=== PATIENT | female | born 1960 | race Hispanic/Latino ===

== ENCOUNTER 2018-11-22 13:32 | Emergency (ER) | payer MEDICARE ==
[2018-11-22 15:10] VITALS: BP 122/77
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
[2018-11-22] MEDS ORDERED: ZOFRAN ODT PO ONE (17:26)
[2018-11-22] MEDS ORDERED: DECADRON IM STA (17:26)
[2018-11-22] MEDS ORDERED: NORCO 5/325 PO ONE (17:26)
[2018-11-22] MEDS ORDERED: BENADRYL IM ONE (17:26)
[2018-11-22] MEDS ORDERED: ULTRAM PO ONE (17:41)
--- NOTE | 2018-11-24 14:25 | XRay Report ---
FINAL REPORT EXAM: XR SPINE CERVICAL 2-3V HISTORY: neck hip TECHNIQUE: AP, lateral , swimmer's, and odontoid views of the cervical spine PRIORS: None. FINDINGS: The vertebral body heights and disc spaces are well maintained. The alignment is normal. No prevert ebral soft tissue swelling is seen. The odontoid is intact. IMPRESSION: Normal cervical spine.
--- NOTE | 2018-11-24 15:54 | XRay Report ---
FINAL REPORT EXAM: XR HIP 2-3V LT HISTORY: left hip pain TECHNIQUE: AP view of the pelvis and single coned-down view of the left hip. PRIORS: None. FINDINGS: No evidence for acute fracture or dislocation is seen. Joint spaces are maintained. The soft tissues are unremarkable. Bony mineralization is normal. IMPRESSION: No acute soft tissue or bony abnormality noted in the left hip.
--- NOTE | 2018-11-24 15:57 | XRay Report ---
FINAL REPORT EXAM: XR SPINE LUMBOSACRAL 2-3V HISTORY: low back pain TECHNIQUE: AP, lateral and coned-down views of the lumbar spine PRIORS: None. FINDINGS: There is superior endplate compression of L2 and L3. There is slight kyphosis at the L1-L2 level. The other vertebral body heights and disc spaces are well maintained. The alignment is normal. No ev idence for spondylolysis or spondylolisthesis is seen. Pedicles are intact bilaterally at all levels. The paraspinal soft tissues are unremarkable. surgical clips in the right upper quadrant suggests pr ior cholecystectomy. IMPRESSION: Superior endplate compressions of L1 and L2.
== END 2018-11-22 19:10 | disposition home or self-care (01) ==
LOC: ED 13:32
DX: S16.1XXA Strain of muscle, fascia and tendon at neck level, initial encounter (principal); M54.5 Low back pain; M25.552 Pain in left hip; G43.709 Chronic migraine without aura, not intractable, without status migrainosus; J44.9 Chronic obstructive pulmonary disease, unspecified; F17.200 Nicotine dependence, unspecified, uncomplicated; V49.59XA Passenger injured in collision with other motor vehicles in traffic accident, initial encounter; Y93.89 Activity, other specified; Y92.89 Other specified places as the place of occurrence of the external cause; Y99.8 Other external cause status
CPT/HCPCS: 72040; 72100; 73502; 96372; 99283; J1100; J1200; Q0162